=== PATIENT | female | born 1980 | race Caucasian/White ===

== ENCOUNTER 2017-01-03 16:34 | Inpatient (IN) | payer OTHER ==
[2017-01-03] MEDS ORDERED: TERBUTALINE 1 MG/ML VIAL SQ PRN (16:44)
[2017-01-03] MEDS ORDERED: METHYLERGONOVINE 0.2 MG/ML 1 ML AMP IM PRN (16:44)
[2017-01-03] MEDS ORDERED: CARBOPROST TROMETHAMINE 250 MCG/ML 1 ML AMP IM PRN (16:44)
[2017-01-03] MEDS ORDERED: LIDOCAINE 1% (PF) 10 MG/ML (30 ML SDV) SQ PRN (16:44)
[2017-01-03] MEDS ORDERED: OXYTOCIN 10 UNIT/ML 1 ML VIAL IM PRN (16:44)
[2017-01-03] MEDS ORDERED: BUTORPHANOL 1 MG/ML 1 ML VIAL IV PRN (16:48)
--- NOTE | 2017-01-03 16:58 | P.HPOB ---
History of Present Illness H&P Date: 01/03/17 Chief Complaint: 36 weeks intrauterine , labor The patient is a 36-year-old 1 para 0 admitted at 36-0/7 weeks by last menstrual period and confirmed by second trimester ultrasound. She is admitted in early active labor with cervix 5-6 cm dilated. Her was complicated by premature rupture of membranes for which she was sent to [facility] where she remained as an inpatient for approximately 8 weeks. She was found to have the amniotic membranes receive and was released for outpatient management further at approximately 28-30 weeks of . She has, since that time, undergone twice weekly NSTs with serial growth ultrasounds which have been reassuring with adequate growth throughout. She also falls into the category of advanced maternal age and declined testing. She is Rh- and received RhoGAM at 28 weeks. On labor and delivery, all signs are reassuring. Group B strep status is positive. Obstetrical history: 1 para 0 with current statistics listed in history of present illness. EDC of 01/31/2017 was established by last menstrual period and confirmed by second trimester ultrasound. Laboratory workup demonstrates a blood type of A- with a negative antibody screen. Rubella status is immune. All other laboratory workup was within normal limits. One hour Glucola was normal and group B strep status is positive. Gynecologic history: Unremarkable with no history of any infections to include STDs though she was treated for Ureaplasma during this . Review of Systems Review of systems is confined to history of present illness. Medications and Allergies Home Medications Medication Instructions Recorded Confirmed Type Pnv,Calcium 72/Iron/Folic Acid 1 tab PO DAILY 01/03/17 01/03/17 History [ Plus Tablet] Allergies Allergy/AdvReac Type Severity Reaction Status Date / Time No Known Allergies Allergy Verified 01/03/17 16:45 Exam - Vital Signs Vital signs: Intake and Output 01/03/17 01/03/17 01/03/17 06:59 14:59 22:59 Other: Weight 89.811 kg Patient Weight 01/04/17 06:59 Weight 89.811 kg In general, this is a well-developed, well-nourished white female in discomfort as she is in active labor. Her heart has a regular rhythm and rate without murmur. Her lungs clear to auscultation bilaterally in all alejandro. Her abdomen is gravid, nondistended, has normal active bowel sounds, is soft, nontender, and without any palpable masses aside from uterine fundus. Her extremities are without any cyanosis, clubbing, or significant edema and are nontender to palpation bilaterally. Digital cervical examination demonstrates her cervix to be 5 cm dilated, 90% effaced, with the vertex in presentation at - 2 station. The amniotic membranes are intact at this time. Assessment and Plan (1) Active labor Status: Acute (2) Advanced maternal age (AMA) in Status: Acute (3) Rh negative status during Status: Acute (4) History of premature rupture of membranes (PROM) in previous , currently Status: Acute Plan: The patient is admitted for active management of labor. Antibiotic prophylaxis has been ordered for group B strep prophylaxis. She will have close maternal and surveillance and expectant management will be practiced. She is a good candidate for IV or epidural analgesia and is requesting epidural if possible.
[2017-01-03] MEDS ORDERED: PENICILLIN G POTASSIUM 5,000,000 UNIT in DEXTROSE 5% IN WATER 100 ML IVPB ONE ×2 (17:00)
[2017-01-03 17:15] LABS: Basophils % (A) 0 %; CH 30.8; Eosinophils # (A) 0.1 k/uL (0-0.7); Eosinophils % (A) 1 %; HCT 36.3 % (34.0-46.0); HDW 2.58; HGB 12.7 gm/dL (11.4-16.0); Luc # (Auto) 0.15; Luc % (Auto) 2; Lymphocytes # (A) 2.1 k/uL (1.0-4.8); Lymphocytes % (A) 23 %; MCH 31.9 pg (25.0-35.0); MCHC 35.1 g/dL (31.0-37.0); Mean Platelet Volume 7.8; Monocytes # (A) 0.3 k/uL (0-1.0); Monocytes % (A) 3 %; Neutrophils # (A) 6.6 k/uL (1.3-7.7); Neutrophils % (A) 72 %; RBC 3.99 m/uL (3.80-5.40); RDW 14.2 % (11.5-15.5); WBC 9.3 k/uL (3.8-10.6); WBC (Perox) 9.14
[2017-01-03] MEDS ORDERED: SODIUM CHLORIDE 0.9% 100 ML BAG ONE (17:29)
[2017-01-03] MEDS ORDERED: BUPIVACAINE (PF) 0.25% 30 ML VIAL ONE (17:29)
[2017-01-03] MEDS ORDERED: fentaNYL (PF) 50 MCG/ML 5 ML AMP ONE (17:29)
[2017-01-03] MEDS ORDERED: BUPIVACAINE (PF) 0.25% 25 ML, fentaNYL (PF) 200 MCG in SODIUM CHLORIDE 0.9% 71 ML EPIDURAL ONE (17:56)
[2017-01-03] MEDS: LACTATED RINGERS 1,000 ML IV SCH ×2 (19:00→19:10)
[2017-01-03 19:26] VITALS: BMI 31.9
[2017-01-03] MEDS: PENICILLIN G POTASSIUM 2,500,000 UNIT in DEXTROSE 5% IN WATER 100 ML IVPB SCH ×2 (21:30)
[2017-01-03] MEDS: OXYTOCIN 20 UNITS/1000 ML NS 1,000 ML IV SCH (22:46)
[2017-01-04] MEDS ORDERED: CITRIC ACID-SODIUM CITRATE 15 ML CUP PO ONE (00:51)
[2017-01-04] MEDS ORDERED: BUPIVACAINE (PF) 0.25% 30 ML VIAL ONE (01:10)
[2017-01-04] MEDS ORDERED: SODIUM CHLORIDE 0.9% 100 ML BAG ONE (01:10)
[2017-01-04] MEDS ORDERED: MORPHINE SULFATE (PF) 0.3 MG/0.3 ML SYR ONE (01:10)
[2017-01-04] MEDS ORDERED: PHENYLEPHRINE-0.9% NACL SYG 1 MG/10 ML SYRINGE ONE (01:10)
[2017-01-04] MEDS ORDERED: KETOROLAC 30 MG/ML 1 ML VIAL ONE (01:10)
[2017-01-04] MEDS ORDERED: OXYTOCIN 10 UNIT/ML 1 ML VIAL ONE (01:10)
[2017-01-04] MEDS ORDERED: fentaNYL (PF) 50 MCG/ML 5 ML AMP ONE (01:10)
[2017-01-04] MEDS ORDERED: ONDANSETRON 4 MG/2 ML VIAL ONE (01:10)
[2017-01-04] MEDS ORDERED: Acetaminophen-Codeine 300-30mg TAB PO PRN (02:05)
[2017-01-04] MEDS ORDERED: ACETAMINOPHEN TAB 325 MG TAB PO PRN (02:05)
[2017-01-04] MEDS ORDERED: LANOLIN CREAM 5 GM TUBE TOPICAL PRN (02:05)
[2017-01-04] MEDS ORDERED: METOCLOPRAMIDE 5 MG/ML 2 ML VIAL IVP PRN (02:05)
[2017-01-04] MEDS ORDERED: ZOLPIDEM 5 MG TAB PO PRN (02:05)
[2017-01-04] MEDS ORDERED: ONDANSETRON 4 MG/2 ML VIAL IVP PRN (02:05)
[2017-01-04] MEDS ORDERED: diphenhydrAMINE 25 MG CAP PO PRN (02:05)
[2017-01-04] MEDS ORDERED: diphenhydrAMINE 50 MG CAP PO PRN (02:05)
[2017-01-04] MEDS ORDERED: SIMETHICONE 80 MG CHEWABLE PO PRN (02:05)
[2017-01-04] MEDS ORDERED: NALOXONE 0.4 MG/ML 1 ML VIAL IV PRN ×2 (02:05→06:35)
[2017-01-04] MEDS ORDERED: diphenhydrAMINE 50 MG/ML 1 ML VIAL IVP PRN ×3 (02:05→06:35)
[2017-01-04] MEDS ORDERED: OXYTOCIN 20 UNITS/1000 ML NS 1,000 ML IV SCH (02:15)
--- NOTE | 2017-01-04 02:18 | P.OP ---
Date of Procedure: 01/04/17 Preoperative Diagnosis: #1. 36 and one sevenths weeks intrauterine , labor #2. History of PPROM, resealed #3. Advanced maternal age #4. Rh- #5. Group B strep colonization #6. Arrest of descent Postoperative Diagnosis: Same plus #7. Right occiput transverse position Procedure(s) Performed: #1. Primary low-transverse section Implants: Anesthesia: spinal Surgeon: Allen Weir Food Service Clerk #1: Nida Simmons Estimated Blood Loss (ml): 600 IV fluids (ml): 1,000 Urine output (ml): 100 Pathology: other (Placenta) Condition: stable Disposition: floor Indications for Procedure: Operative Findings: The patient progressed very slowly through the active phase of labor and did not undergo artificial rupture of membranes until 4 hours after antibiotics had been infused. She did ultimately reach complete and began pushing with no descent of the head below 0 station. She was felt to have a contracted pelvic type. She was taken to the operating room where she was delivered of a viable 6 lbs. 14 oz. baby boy with Apgars of 8 at 1 minute and 9 at 5 minutes in the right occiput transverse position. The head was deep within the pelvis. The placenta was delivered manually, intact, and grossly normal with a grossly normal three-vessel cord. The uterus, tubes, and ovaries were otherwise entirely normal. Following delivery of the infant, the urine was noted to be grossly bloody. After closure of the uterus, sterile formula was used to fill the bladder in a retrograde fashion at which time there was no evidence of leaking making the likely source of the bleeding from the Monahan bulb in the bladder neck secondary to the depth of the head in the pelvis at removal. Description of Procedure: The patient was prepped and draped in usual fashion after spinal anesthesia was administered by the anesthesiologist. A Pfannenstiel incision was made and extended into the abdominal cavity without difficulty. The bladder peritoneum was noted to be fairly high was elevated, incised, and reflected distally. A 2 cm incision was made in the transverse plane of the lower uterine segment to enter the uterus at which clear fluid was again noted. The incision was extended in both directions using the bandage scissors. The head was found deep within the pelvis and wedged very tightly. It was ultimately brought up and out of the pelvis and delivered through the incision where the nose and mouth were thoroughly suctioned. The remainder of the infant was delivered onto the field where the cord was doubly clamped, cut, and the passed for resuscitative measures with weight and Apgars as noted above. A segment of cord was doubly clamped, cut, and set aside should cord gases become necessary, but only after cord blood had been gathered for evaluation for the necessity of RhoGAM. The placenta was then delivered manually and intact as noted above. The uterus was exteriorized and the interior cavity of the uterus swept of any remaining placental or membranous fragments. The margins of the incision were grasped with Monterroso clamps and the incision closed in 2 layers. The first layer was a running locking stitch of 0 chromic catgut from margin to margin followed by a running imbricating layer of 0 chromic catgut from margin to margin. Hemostasis appeared excellent. At this time, the urine was noted to be frankly bloody. The posterior cul-de-sac was suctioned using a guard and the uterine and ovarian findings were normal as noted above. The uterus was replaced within the abdominal cavity and the gutters swept of any remaining blood, fluid, or clot. The Monahan was then from the Monahan bag in the bladder filled in a retrograde fashion with sterile formula using a large Stephany syringe. Careful examination of all angles of the bladder as well as the dissection demonstrated no evidence of leakage of formula and the catheter was reattached to the drainage tubing. The incision was reexamined and found to be hemostatic. The parietal peritoneum was loosely reapproximated and layer of muscles examined and found to be hemostatic. The fascia was closed with 2 running stitches of 0 Vicryl proceeding from lateral margins to the midpoint. The subcutaneous tissues were irrigated, made hemostatic with the Bovie, and reapproximated with a running stitch of 30 plain catgut. The skin was reapproximated with a running subcuticular stitch of 4-0 Vicryl from margin to margin. This was followed by half-inch Steri-Strips placed with Mastisol. There was a point of bleeding noted following closure from the right middle portion of the incision over which a thicker layer of gauze was placed along with a pressure bandage. Estimated blood loss for the case was approximate 600 mL. All sponge, instrument, and needle counts were correct. There were no complications aside from the frankly bloody urine for which there is no evidence of direct bladder injury. Both mother and infant are resting comfortably in recovery of the infant has been taken to the special care nursery secondary to group B strep positivity as well as gestational age 4 observation and treatment as necessary.
[2017-01-04] MEDS ORDERED: MORPHINE SULFATE 2 MG/ML SYRINGE IVP PRN (03:13)
[2017-01-04] MEDS: LACTATED RINGERS 1,000 ML IV SCH ×3 (03:18→14:03)
[2017-01-04] MEDS: PENICILLIN G POTASSIUM 2,500,000 UNIT in DEXTROSE 5% IN WATER 100 ML IVPB SCH ×2 (03:23)
[2017-01-04] MEDS ORDERED: KETOROLAC 30 MG/ML 1 ML VIAL IVP PRN (06:35)
[2017-01-04] MEDS ORDERED: MORPHINE SULFATE 4 MG/ML SYRINGE IVP PRN (06:35)
[2017-01-04] MEDS ORDERED: NALBUPHINE 10 MG/ML AMPUL IV PRN (06:35)
[2017-01-04] MEDS: SENNOSIDES-DOCUSATE SODIUM 1 EACH TAB PO SCH ×2 (08:44→20:17)
[2017-01-04] MEDS: KETOROLAC 30 MG/ML 1 ML VIAL IVP PRN ×2 (08:47→18:54)
[2017-01-05] MEDS: OXYTOCIN 20 UNITS/1000 ML NS 1,000 ML IV SCH (00:35)
[2017-01-05 07:43] LABS: Basophils % (A) 0 %; CH 30.8; CHCM 33.2; Eosinophils # (A) 0.1 k/uL (0-0.7); Eosinophils % (A) 1 %; HCT 31.8 % (34.0-46.0); HDW 2.42; HGB 10.5 gm/dL (11.4-16.0); Luc # (Auto) 0.14; Luc % (Auto) 1; Lymphocytes # (A) 1.5 k/uL (1.0-4.8); Lymphocytes % (A) 14 %; MCH 30.9 pg (25.0-35.0); MCHC 33.1 g/dL (31.0-37.0); MCV 93.2 fL (80.0-100.0); Mean Platelet Volume 8.1; Monocytes # (A) 0.3 k/uL (0-1.0); Monocytes % (A) 3 %; Neutrophils % (A) 81 %; RBC 3.42 m/uL (3.80-5.40); RDW 14.4 % (11.5-15.5); WBC 11.1 k/uL (3.8-10.6); WBC (Perox) 11.47
[2017-01-05] MEDS: KETOROLAC 30 MG/ML 1 ML VIAL IVP PRN ×2 (07:45→16:11)
[2017-01-05] MEDS: SENNOSIDES-DOCUSATE SODIUM 1 EACH TAB PO SCH (07:47)
--- NOTE | 2017-01-05 08:55 | P.PN ---
Subjective Principal diagnosis: Postoperative day number two Objective - Vital Signs Vital signs: Vital Signs Temp 100.6 F H 01/05/17 07:52 Pulse 93 01/05/17 07:52 Resp 16 01/05/17 07:52 BP 110/64 01/05/17 07:52 Pulse Ox 100 01/05/17 07:52 Intake & Output 01/04/17 01/05/17 01/05/17 18:59 06:59 18:59 Intake Total 125 500 Output Total 300 350 Balance -175 -350 500 Intake: Intake, IV Titration 125 Amount Penicillin G Potassium 5, 125 000,000 unit In Dextrose 5% in Water 100 ml @ 100 mls/hr IVPB ONCE ONE Rx#: [id number] Oral 500 Output: Urine 300 350 Other: Voiding Method Toilet # Voids 400 1 # Bowel Movements 0 - Constitutional General appearance: Present: average body habitus, cooperative - EENT Eyes: Present: PERRLA ENT: Present: hearing grossly normal - Neck Neck: Present: normal ROM - Respiratory Respiratory: bilateral: CTA - Cardiovascular Rhythm: regular Heart sounds: normal: S1, S2 - Gastrointestinal General gastrointestinal: Present: normal bowel sounds - Genitourinary Genitourinary Comment(s): Incision clean and dry, intact, Steri-Strips applied. - Neurologic Neurologic: Present: CNII-XII intact - Musculoskeletal Musculoskeletal: Present: gait normal, strength equal bilaterally - Psychiatric Psychiatric: Present: A&O x's 3, appropriate affect, intact judgment & insight - Labs CBC & Chem 7: 01/05/17 07:29 Labs: Abnormal Lab Results - Last 24 Hours (Table) 01/05/17 Range/Units 07:29 WBC 11.1 H (3.8-10.6) k/uL RBC 3.42 L (3.80-5.40) m/uL Hgb 10.5 L (11.4-16.0) gm/dL Hct 31.8 L (34.0-46.0) % Neutrophils # 9.0 H (1.3-7.7) k/uL Assessment and Plan Plan: Continue postoperative care, possible discharge home tomorrow. Advanced diet and activity. Time with Patient: Less than 30
--- NOTE | 2017-01-05 10:44 | P.PN ---
Progress Note - Text Date:01/05 Time:700 am Patient is status post . Patient seen this morning with VAS score of 2. c/o of pruritus, no c/o nausea/vomiting, comfortable and doing well.
[2017-01-05] MEDS: IBUPROFEN 600 MG TAB PO PRN (23:07)
[2017-01-05] MEDS: LACTATED RINGERS 1,000 ML IV SCH (23:53)
[2017-01-06] MEDS: OXYTOCIN 20 UNITS/1000 ML NS 1,000 ML IV SCH (02:20)
[2017-01-06] MEDS: SENNOSIDES-DOCUSATE SODIUM 1 EACH TAB PO SCH ×3 (02:20→20:20)
[2017-01-06] MEDS: IBUPROFEN 600 MG TAB PO PRN ×3 (05:54→20:21)
--- NOTE | 2017-01-06 07:46 | P.PN ---
Subjective Principal diagnosis: Postoperative day number two Objective - Vital Signs Vital signs: Vital Signs Temp 98.2 F 01/06/17 00:00 Pulse 74 01/06/17 00:00 Resp 16 01/06/17 00:00 BP 98/55 01/06/17 00:00 Pulse Ox 98 01/05/17 16:00 Intake & Output 01/05/17 01/06/17 01/06/17 18:59 06:59 18:59 Intake Total 1000 Balance 1000 Intake: Oral 1000 Other: # Voids 3 1 - Constitutional General appearance: Present: average body habitus, cooperative - EENT Eyes: Present: PERRLA ENT: Present: hearing grossly normal - Neck Neck: Present: normal ROM - Respiratory Respiratory: bilateral: CTA - Cardiovascular Rhythm: regular - Gastrointestinal General gastrointestinal: Present: normal bowel sounds - Genitourinary Genitourinary Comment(s): Abdominal incision clean and dry, well approximated, Steri-Strips applied. Fundus firm, mobile, 18 week size, nontender. - Integumentary Integumentary: Present: normal, normal turgor - Neurologic Neurologic: Present: CNII-XII intact - Musculoskeletal Musculoskeletal: Present: gait normal, strength equal bilaterally - Psychiatric Psychiatric: Present: A&O x's 3, appropriate affect, intact judgment & insight - Labs CBC & Chem 7: 01/05/17 07:29 Labs: Abnormal Lab Results - Last 24 Hours (Table) 01/05/17 Range/Units 07:29 WBC 11.1 H (3.8-10.6) k/uL RBC 3.42 L (3.80-5.40) m/uL Hgb 10.5 L (11.4-16.0) gm/dL Hct 31.8 L (34.0-46.0) % Neutrophils # 9.0 H (1.3-7.7) k/uL Assessment and Plan Plan: Continue postoperative care. Circumcision to be performed when [place]. Discharged home in 1-2 days. Time with Patient: Less than 30
[2017-01-06] MEDS: Acetaminophen-Codeine 300-30mg TAB PO PRN ×2 (16:55→23:07)
[2017-01-07] MEDS: IBUPROFEN 600 MG TAB PO PRN ×3 (02:28→21:12)
[2017-01-07] MEDS: Acetaminophen-Codeine 300-30mg TAB PO PRN ×2 (06:23→15:16)
--- NOTE | 2017-01-07 07:57 | P.PN ---
Subjective Principal diagnosis: Postoperative day #3 Slept well. continuing to do well in the nursery, but 7 days of antibiotics planned. Patient without complaints. Objective - Vital Signs Vital signs: Vital Signs Temp 97.8 F 01/06/17 23:31 Pulse 67 01/06/17 23:31 Resp 16 01/06/17 23:31 BP 117/71 01/06/17 23:31 Pulse Ox 98 01/06/17 23:31 - Constitutional General appearance: Present: average body habitus, cooperative - EENT Eyes: Present: PERRLA ENT: Present: hearing grossly normal - Neck Neck: Present: normal ROM Thyroid: bilateral: normal size - Respiratory Respiratory: bilateral: CTA - Cardiovascular Rhythm: regular - Gastrointestinal General gastrointestinal: Present: normal bowel sounds - Genitourinary Genitourinary Comment(s): Abdominal incision well approximated, clean and dry. Fundus firm, nontender, midline, mobile, 18 week size - Integumentary Integumentary: Present: normal - Neurologic Neurologic: Present: CNII-XII intact - Musculoskeletal Musculoskeletal: Present: gait normal, strength equal bilaterally - Psychiatric Psychiatric: Present: A&O x's 3, appropriate affect, intact judgment & insight - Labs CBC & Chem 7: 01/05/17 07:29 Assessment and Plan Plan: Continue postoperative care. Likely discharge home tomorrow. Time with Patient: Less than 30
[2017-01-07] MEDS: SENNOSIDES-DOCUSATE SODIUM 1 EACH TAB PO SCH ×2 (09:01→21:12)
[2017-01-08] MEDS: IBUPROFEN 600 MG TAB PO PRN ×3 (04:11→17:49)
--- NOTE | 2017-01-08 07:36 | P.DS ---
Providers Date of admission: 01/03/17 16:55 Expected date of discharge: 01/08/17 Attending physician: Louisa Donaldosn Primary care physician: Louisa Donaldson [facility] Course: This is a 36-year-old white female 1 para 0 EDC 01/31/2017 at 36 and one sevenths weeks' gestation. Patient's was remarkable for spontaneous rupture of membranes which occurred in the second trimester. She was managed conservatively, fluid reaccumulated, she was followed closely first as an inpatient and then as an outpatient. She presented on this admission with regular strong uterine contractions, in active spontaneous labor. Blood type is A-, group B strep cultures negative, rubella status immune. Please see dictated history and physical for details. Patient began labor with oxytocin augmentation. She had arrest of dilatation and descent, as well as nonreassuring heart tones. The decision was made to proceed with primary low transverse section. She gave to a liveborn male with scores of 8 and 9 at one and 5 minutes respectively. Infant weighed 3110 g or 6 lbs. 14 oz. Surgery was otherwise uncomplicated, please see dictated operative note for details. Decision was made by coil machine supervisor to keep for 7 days of antibiotics. He is otherwise doing well. The patient herself this morning is doing very well, she is voiding, ambulating, passing flatus without difficulty. Vital signs are stable and she is afebrile. Fundus is firm and in the midline, symmetric and 18 week size. Incision is clean and dry, well approximated, Steri-Strips applied. Breast-feeding is going well. I have given her prescription for breast pump. We have discussed analgesia and she will use Motrin, 800 mg every 8 hours as needed for pain. I have reminded her no intercourse, tampons or douching. She will call me with any fevers shakes or chills, foul smelling or copious lochia, with the passage of large blood clots, with any pain not alleviated by Motrin products, or indeed with any difficulties or concerns. No driving for 2 weeks. No heavy lifting. Continue vitamin daily. We' ll likely be circumcised tomorrow, and plan is for his discharge home on Wednesday. Patient Condition at Discharge: Good Plan - Discharge Summary New Discharge Prescriptions: No Action Pnv,Calcium 72/Iron/Folic Acid [ Plus Tablet] 1 tab PO DAILY Discharge Medication List Pnv,Calcium 72/Iron/Folic Acid [ Plus Tablet] 1 tab PO DAILY 01/03/17 [ History] Follow up Appointment(s)/Referral(s): Louisa Donaldson MD [Primary Care Provider] - 2 Weeks Discharge Disposition: HOME SELF-CARE
[2017-01-08] MEDS: SENNOSIDES-DOCUSATE SODIUM 1 EACH TAB PO SCH (08:28)
[2017-01-08 10:55] VITALS: RESP 16
[2017-01-08 17:22] VITALS: BP 140/72; PULSE 82; TEMP 98.1
[2017-01-08] MEDS ORDERED: SODIUM CHLORIDE 0.9% 100 ML BAG ONE (17:29)
[2017-01-08] MEDS ORDERED: fentaNYL (PF) 50 MCG/ML 5 ML AMP ONE (17:29)
[2017-01-08] MEDS ORDERED: BUPIVACAINE (PF) 0.25% 30 ML VIAL ONE (17:29)
== END 2017-01-08 18:12 | disposition home or self-care (01) | DRG 766 ==
LOC: FBPOP 16:34 → 4FBP 16:55
PROVIDERS: ADMIT Obstetrics & Gynecology; ATTEND Obstetrics & Gynecology
PROC: 00HU33Z Insertion of Infusion Device into Spinal Canal, Percutaneous Approach (ICD-10-PCS; 2017-01-03)
PROC: 3E0R3CZ (ICD-10-PCS; 2017-01-03)
PROC: 10D00Z1 Extraction of Products of Conception, Low, Open Approach (ICD-10-PCS; principal; 2017-01-04 01:20)
DX: O60.13X0 Preterm labor second trimester with preterm delivery third trimester, not applicable or unspecified (principal); O26.893 Other specified pregnancy related conditions, third trimester; O62.1 Secondary uterine inertia; O76 Abnormality in fetal heart rate and rhythm complicating labor and delivery; O99.824 Streptococcus B carrier state complicating childbirth; Z67.11 Type A blood, Rh negative; Z37.0 Single live birth; Z3A.36 36 weeks gestation of pregnancy; Z79.899 Other long term (current) drug therapy
CPT/HCPCS: 59025; 85025; 86850; 86870; 86880; 86900; 86901; 88307; 99213

== ENCOUNTER 2024-07-11 12:39 | Emergency (ER) | payer BC, OTHER ==
--- NOTE | 2024-07-11 13:42 | ED ---
Chest Pain HPI - General Source: patient, RN notes reviewed Mode of arrival: ambulatory Limitations: no limitations - History of Present Illness MD Complaint: chest pain <Barbara Hernandez - Last Filed: 07/11/24 13:40> <Jason Moreau - Last Filed: 07/11/24 18:48> - General Chief Complaint: Chest Pain Stated Complaint: chest pain, lt arm numb Time Seen by Provider: 07/11/24 13:15 - History of Present Illness Initial Comments: Quick Note: This is a 44-year-old female who presents to the emergency department for chest pain. States that she was sitting down at work and she started to develop pain in her chest going into her left arm. She then started to feel very clammy. She tried to get up to walk around and see if that would help, but states that symptoms persisted. Her coworker then called EMS. Denies any history of cardiac issues or similar symptoms in the past. She does still have mild pain that she describes as a dull discomfort. (Barbara Hernandez) This is a 44-year-old female who presents to the emergency department complaining of chest pain while she was at work she stated a little pain went on her arm and then she became clammy and felt a little dizzy. Patient states that symptoms have pretty much resolved at this point. Patient denies any history of diabetes hypertension or high cholesterol she denies smoking she denies family history of heart disease. Patient has never had any cardiac issues in the past. Patient states she has had a little bit of a cough lately but nothing too significant. Patient denies any fever chills. Patient has abdominal pain patient has nausea vomiting or diarrhea. (Jason Moreau) - Related Data Home Medications Medication Instructions Recorded Confirmed Pnv,Calcium 72/Iron/Folic Acid 1 tab PO DAILY 01/03/17 01/03/17 [ Plus Tablet] Allergies Allergy/AdvReac Type Severity Reaction Status Date / Time No Known Allergies Allergy Verified 07/11/24 12:59 Review of Systems ROS Other: All systems not noted in ROS Statement are negative. <Barbara Hernandez - Last Filed: 07/11/24 13:40> ROS Other: All systems not noted in ROS Statement are negative. <Jason Moreau - Last Filed: 07/11/24 18:48> ROS Statement: Those systems with pertinent positive or pertinent negative responses have been documented in the HPI. Past Medical History Additional Past Medical History / Comment(s): hx of constipation. stool softene rs prn daily for hx. srom at 21 weeks. History of Any Multi-Drug Resistant Organisms: None Reported Past Surgical History: No Surgical Hx Reported Additional Past Surgical History / Comment(s): wisdom teeth Additional Past Anesthesia/Blood Transfusion Reaction / Comment(s): no hx Past Psychological History: Anxiety Smoking Status: Current every day smoker Past Alcohol Use History: Occasional Past Drug Use History: None Reported - Past Family History Father Family Medical History: Hypertension Mother Family Medical History: Thyroid Disorder <Barbara Hernandez - Last Filed: 07/11/24 13:40> General Exam Limitations: no limitations <Barbara Hernandez - Last Filed: 07/11/24 13:40> <Jason Moreau - Last Filed: 07/11/24 18:48> - General Exam Comments Initial Comments: Visual Physical Exam Vital signs reviewed General: Well-appearing, nontoxic, no acute distress. Head: Normocephalic, atraumatic Eyes: PERRLA, EOMI ENT: Airway patent Chest: Nonlabored breathing Skin: No visual rash, normal skin tone Neuro: Alert and oriented 3 Musculoskeletal: No gross abnormalities (Barbara Hernandez) GENERAL: Patient is well-developed and well-nourished. Patient is nontoxic and well- hydrated and is in mild distress. ENT: Neck is soft and supple. No significant lymphadenopathy is noted. Oropharynx is clear. Moist mucous membranes. Neck has full range of motion without eliciting any pain. EYES: The sclera were anicteric and conjunctiva were pink and moist. Extraocular movements were intact and pupils were equal round and reactive to light. Eyelids were unremarkable. PULMONARY: Unlabored respirations. Good breath sounds bilaterally. No audible rales rhonchi or wheezing was noted. CARDIOVASCULAR: There is a regular rate and rhythm without any murmurs gallops or rubs. ABDOMEN: Soft and nontender with normal bowel sounds. SKIN: Skin is clear with no lesions or rashes and otherwise unremarkable. NEUROLOGIC: Patient is alert and oriented x3. Cranial nerves II through XII are grossly intact. Motor and sensory are also intact. Normal speech, volume and content. Symmetrical smile. MUSCULOSKELETAL: Normal extremities with adequate strength and full range of motion. No lower extremity swelling or edema. No calf tenderness. LYMPHATICS: No significant lymphadenopathy is noted PSYCHIATRIC: Normal psychiatric evaluation. (Jason Moreau) Course Vital Signs 07/11/24 12:57 Temperature 97.8 F Pulse Rate 62 Respiratory 18 Rate Blood Pressure 122/76 O2 Sat by Pulse 99 Oximetry Chest Pain MDM <Barbara Hernandez - Last Filed: 07/11/24 13:40> <Jason Moreau - Last Filed: 07/11/24 18:48> - [facility] I performed the QuickNote portion of this chart. Signed Barbara Hernandez PA-C. (Barbara Hernandez) EKG is interpreted by myself. EKG shows sinus rhythm at 62 bpm NV interval 238 QRS is 94 QT interval is 407 QTc is 412. Patient's EKG shows no ST segment ovation or depression Was pt. sent in by a medical professional or institution ([facility], [facility], urgent c are, hospital, or assisted...) When possible be specific @ -No Did you speak to anyone other than the patient for history (EMS, parent, family, police, friend...)? What history was obtained from this source @ -No Did you review nursing and triage notes (agree or disagree)? Why? @ -I reviewed and agree with nursing and triage notes Were old charts reviewed (outside hosp., previous admission, EMS record, old EKG, old radiological studies, urgent care reports/EKG's, assisted records)? Report findings @ -No old charts were reviewed Differential Diagnosis? @ -Differential Chest Pain: Stable Angina, Unstable Angina, STEMI, NSTEMI Aortic Dissection, Pneumothorax, Musculoskeletal, Esophageal Spasm GERD, Cholecystitis, Pancreatitis, Zoster, this is not meant to be an all-inclusive list. EKG interpreted by me (3pts min.). @ -As above X-rays interpreted by me (1pt min.). @ -Chest x-ray shows no acute [place] CT interpreted by me (1pt min.). @ -None done U/S interpreted by me (1pt. min.). @ -None done What testing was considered but not performed or refused? (CT, X-rays, U/S, labs)? Why? @ -None What meds were considered but not given or refused? Why? @ -None Did you discuss the management of the patient with other professionals (professionals i.e. , PA, SHE[employer] T[employer]NER, lab, RT, psych nurse, clinical social work aide, reservations agent, teacher, army senior officer, case liner)? Give summary @ -No Was smoking cessation discussed for >3mins.? @ -No Was critical care preformed (if so, how long)? @ -No Were there social determinants of health that impacted care today? How? (Homelessness, low income, unemployed, alcoholism, drug addiction, transportation, low edu. Level, literacy, decrease access to med. care, shelter, rehab)? @ -No Was there de-escalation of care discussed even if they declined (Discuss DNR or withdrawal of care, Hospice)? DNR status @ -No What co-morbidities impacted this encounter? (DM, HTN, Smoking, COPD, CAD, Cancer, CVA, ARF, Chemo, Hep., AIDS, mental health diagnosis, sleep apnea, morbid obesity)? @ -None Was patient admitted / discharged? Hospital course, mention meds given and route, prescriptions, significant lab abnormalities, going to OR and other pertinent info. @ -Patient was no longer having any chest pain when I initially interviewed her and she continued to be chest pain free throughout the ED course. Patient's lab work was normal EKG was normal vitals were normal as was the chest x-ray. Undiagnosed new problem with uncertain prognosis? @ -No Drug Therapy requiring intensive monitoring for toxicity (Heparin, Nitro, Insulin, Cardizem)? @ -No Were any procedures done? @ -No Diagnosis/symptom? @ -Atypical chest pain Acute, or Chronic, or Acute on Chronic? @ -Acute Uncomplicated (without systemic symptoms) or Complicated (systemic symptoms)? @ -Complicated Side effects of treatment? @ -No Exacerbation, Progression, or Severe Exacerbation? @ -No Poses a threat to life or bodily function? How? (Chest pain, [place], [place], pneumonia, PE, COPD, DKA, ARF, appy, cholecystitis, CVA, Diverticulitis, Homicidal, Suicidal, threat to staff... and all critical care pts) @ -No (Jason Moreau) Disposition <Barbara Hernandez Last Filed: 07/11/24 13:40> Is patient prescribed a controlled substance at d/c from ED?: No Time of Disposition: 18:40 <Jason Moreau - Last Filed: 07/11/24 18:48> Clinical Impression: Atypical chest pain Disposition: HOME SELF-CARE Condition: Good Instructions (If sedation given, give patient instructions): Chest Pain (ED) Referrals: Kapil Harvey MD [Primary Care Provider] - 1-2 days
[2024-07-11 14:31] LABS: Basophils % (A) 0 %; Eosinophils # (A) 0.2 k/uL (0-0.7); Eosinophils % (A) 2 %; HCT 39.9 % (34.0-46.0); Lymphocytes # (A) 2.1 k/uL (1.0-4.8); Lymphocytes % (A) 26 %; MCH 31.3 pg (25.0-35.0); MCHC 32.6 g/dL (31.0-37.0); Mean Platelet Volume 6.8; Monocytes # (A) 0.3 k/uL (0-1.0); Monocytes % (A) 3 %; Neutrophils # (A) 5.5 k/uL (1.3-7.7); Neutrophils % (A) 67 %; Platelet Count 324 k/uL (150-450); RBC 4.15 m/uL (3.80-5.40); RDW 12.4 % (11.5-15.5); WBC 8.2 k/uL (3.8-10.6)
[2024-07-11 14:48] LABS: ALT 15 U/L (4-34); AST 21 U/L (14-36); African American GFR (CKD) >90 (>60 ml/min/1.73 sqM); Albumin 4.8 g/dL (3.5-5.0); Alkaline Phosphatase 73 U/L (38-126); Anion Gap 9 mmol/L; Blood Urea Nitrogen 8 mg/dL (7-17); Calcium 9.8 mg/dL (8.4-10.2); Carbon Dioxide 25 mmol/L (22-30); Chloride 105 mmol/L (98-107); Glucose 89 mg/dL (74-99); Non-African American GFR(CKD) >90 (>60 ml/min/1.73 sqM); Sodium 139 mmol/L (137-145); Total Bilirubin 0.5 mg/dL (0.2-1.3); Total Protein 8.2 g/dL (6.3-8.2)
[2024-07-11 14:49] LABS: Partial Thromboplastin Time 27.1 sec (22.0-30.0); Prothrombin Time 11.4 sec (10.0-12.5)
--- NOTE | 2024-07-11 14:55 | XR ---
EXAMINATION TYPE: XR chest 2V DATE OF EXAM: 07/11/2024 2:48 PM COMPARISON: None TECHNIQUE: XR chest 2V Frontal and lateral views of the chest. CLINICAL INDICATION:Female, 44 years old with history of Chest Pain; FINDINGS: Lungs/Pleura: There is no evidence of pleural effusion, focal consolidation, or pneumothorax. Biapic al pleural-parenchymal scarring. Pulmonary vascularity: Unremarkable. Heart/mediastinum: Cardiomediastinal silhouette is unremarkable. Musculoskeletal: No acute osseous pathology. IMPRESSION: No acute cardiopulmonary disease/process. [facility] Brendan Noel, , 07/11/2024 2:52 PM
[2024-07-11 19:28] VITALS: BP 139/79; PULSE 59; RESP 20; TEMP 98.3
== END 2024-07-11 19:29 | disposition home or self-care (01) ==
LOC: EC 12:39
DX: R07.89 Other chest pain (principal); F17.200 Nicotine dependence, unspecified, uncomplicated
CPT/HCPCS: 36415; 71046; 80053; 83735; 84484; 85025; 85610; 85730; 93005; 99285